=== PATIENT | male | born 1975 | race African-American/Black ===

== ENCOUNTER 2022-07-27 14:15 | Inpatient (IN) ==
--- NOTE | 2022-07-27 15:07 | Emergency Department Note ---
Impression & Plan Depression with suicidal ideation ED Provider Note NAME: ALEKSANDR XIAO AGE: 47 SEX: M : 1975 ARRIVES VIA: Ambulance INFORMANT: Patient, ED PROVIDER(S): Gary Reyes MD CHIEF COMPLAINT: Suicidal ideation MEDICAL DECISION MAKING: patient presents due to concern for suicidal ideation with plan. Blood work is obtained the patient was medically cleared seen and evaluated by psych correctional case records supervisor and referral was made to 3 [facility]. Patient is normal white count mild anemia hemoglobin of 13.8 normal platelet count kidney functions unremarkable. Urinalysis without obvious signs of infection. Salicylate Tylenol alcohol negative. COVID-negative. Prior /Outside records reviewed: None Differential diagnosis: Mood disorder, infection, hypoglycemia, electrolyte abnormalities, cardiac sources, intracerebral event, toxicologic, trauma, neurologic, as well as other pathologies. HPI: Patient presents due to concern for suicidal ideation with plan. Patient states that he has perseverated on thoughts of self-harm for several months but seem to be worse in the last days to 1 week. The patient's thought about sr nging himself or cutting himself. The patient has tried to hang himself in the past but was unsuccessful and the patient states that he has tried to cut his wrist in the past. The patient states he is currently unemployed and does not currently have a place to live. The patient is taking Seroquel as well as trazodone. Patient denies any alcohol tobacco or drug use. Patient states he has had no changes in his medications or missed doses. PAST MEDICAL HISTORY: See Below PAST SURGICAL HISTORY: See Below SOCIAL HISTORY: See Below HOME MEDICATIONS: See Below ALLERGIES: See Below VITALS: See Below PHYSICAL EXAMINATION: GENERAL: NAD, wearing a mask, non-toxic. EYE EXAM: Normal conjunctiva. PERRL, no anisocoria and EOM's grossly intact w/o pain. NECK: Supple, no nuchal rigidity, no adenopathy, non-tender. No signs of meningismus. FROM of the neck with good chin to chest and neck extension. No stridor. LUNGS: Clear to auscultation. Normal chest wall mechanics. HEART: NSR, no MRG. ABDOMEN: Abdomen soft, non-tender, normo-active bowel sounds, no masses, no rebound or guarding. BACK: No CVA TTP. SKIN: No rashes and no bruising. UPPER EXTREMITIES: Upper extremities are grossly normal. LOWER EXTREMITIES: Grossly normal, no edema. NEURO EXAM: A&O x3, cranial nerves II-XII grossly intact, normal speech, moves all 4 extremities. Psych: Positive SI with plan negative HI or AVH. Past Med/Surg History Medical History Depression Surgical History No pertinent past surgical history Social History Smoking Status: Current every day smoker Preferred Language: Montserratian Communication Ability: Effective Machine Edge Bander Required: No Beliefs That Will Affect Care: None Feels Safe at Home: Yes Gender Identity: Male Assistive Devices: None Allergies Allergies Allergy/AdvReac Type Severity Reaction Status Date / Time No Known Allergies Allergy Unverified 07/27/22 19:01 Home Meds Home Medications Medication Instructions Recorded Confirmed Prozac 30 mg PO QAM 07/27/22 07/27/22 Previous Rx's Medication Instructions Recorded Vitamin B-12 1,000 mcg PO DAILY #30 Tabs 07/28/22 famotidine 20 mg PO BID 30 days #60 caps 07/28/22 fluoxetine 10 mg capsule 30 mg PO QAM #90 caps 07/28/22 hydroxyzine HCl 50 mg PO TID PRN Anxiety #90 Tabs 07/28/22 lisinopril 40 mg PO QAM #30 caps 07/28/22 melatonin 10 mg PO HS PRN Sleep 30 days #60 07/28/22 Tabs metformin 500 mg PO TID #90 Tabs 07/28/22 quetiapine 100 mg tablet (Seroquel) 100 mg PO BID #60 tabs 07/28/22 quetiapine 50 mg tablet (Seroquel) 50 mg PO HS #30 tabs 07/28/22 sucralfate 100 mg/mL oral 1 g (10 mL) PO ACHS #400 mL 07/28/22 suspension trazodone 100 mg PO HS #30 tabs 07/28/22 Results & Data (ED) Vital Signs Vital Signs - 24 hr 07/27/22 14:29 07/27/22 14:29 Temperature 36.8 C Temperature Source Oral Pulse Rate 85 Respiratory Rate 16 16 Respiratory Effort / Characteristics Non-Labored Non-Labored Respiratory Depth Normal Normal Respiratory Pattern Regular Regular Blood Pressure 125/74 Blood Pressure Mean 91 Blood Pressure Position Lying Pulse Oximetry 98 Oxygen Delivery Method Room Air Sepsis Recent Fever Within 48 Hours No Sepsis New/Unexplained Change in Mental Status No Sepsis Action Taken by Nursing No Action Required Home Medications Current Medication List: was personally reviewed by me Laboratory Data Attestation: I reviewed the patient's lab results. 07/27/22 14:50 07/27/22 14:50 Lab Results 07/27/22 07/27/22 07/27/22 Range/Units 14:30 14:30 14:50 WBC 5.87 (4.8-10.8) K/ul RBC 4.86 (4.63-6.08) M/uL Hgb 13.8 L (14.0-18.0) g/dl Hct 39.7 L (40.1-51.0) % MCV 81.7 (80.0-100.0) fL MCH 28.4 (25.0-34.0) pg MCHC 34.8 (32.0-36.0) g/dL RDW Std Deviation 37.9 (36.4-46.3) fL RDW Coeff of Kee 12.8 (11.5-14.5) % Plt Count 340 (130-400) K/uL MPV 8.8 L (9.4-12.4) fL Immature Gran % (Auto) 0.3 % Neut % (Auto) 59.9 % Lymph % (Auto) 31.0 % [place] % (Auto) 7.5 % Eos % (Auto) 1.0 % Baso % (Auto) 0.3 % Neut # (Auto) 3.51 (1.4-6.5) K/uL Lymph # (Auto) 1.82 (1.2-3.4) K/uL [place] # (Auto) 0.44 (0.24-0.82) K/uL Eos # (Auto) 0.06 (0-0.50) K/uL Baso # (Auto) 0.02 (0-0.2) K/uL Immature Gran # (Auto) 0.02 (0.00-0.02) K/uL Sodium (136-145) mmol/L Potassium (3.5-5.1) mmol/L Chloride (98-107) mmol/L Carbon Dioxide (21-32) mmol/L Anion Gap (3-11) BUN (6-23) mg/dl Creatinine (0.6-1.4) mg/dl Est Cr Clr Drug Dosing Est GFR ( Amer) ml/min Est GFR (Non-Af Amer) ml/min BUN/Creatinine Ratio (10-20) Glucose (70-99(Fasting)) mg/dl Calcium (8.5-10.1) mg/dl Total Bilirubin (0.2-1.0) mg/dl AST (13-39) U/L ALT (7-52) U/L Alkaline Phosphatase (34-104) U/L Total Protein (6.0-8.3) gm/dl Albumin (3.4-5.0) gm/dl Globulin (2.5-4.0) gm/dl Albumin/Globulin Ratio (0.9-2) TSH (0.300-4.500) uIu/ml Urine Color Dark Yellow Urine Appearance Clear (Clear) Urine pH 6.0 (4.5-7.5) Ur Specific [place] 1.030 (1.000-1.030) Urine Protein Trace H (Negative) Urine Glucose (UA) Negative (Negative) Urine Ketones Trace H (Negative) Urine Blood Negative (Negative) Urine Nitrite Negative (Negative) Urine Bilirubin 1+ H (Negative) Urine Urobilinogen Negative (Negative) Ur Leukocyte Esterase Negative (Negative) Urine WBC (Auto) 1-5 (0-5) /hpf Urine RBC (Auto) 0-4 (0-4) /hpf U Hyaline Cast (Auto) 5-10 H (0-5) /lpf U Epithel Cells (Auto) 10-20 H (0-5) /lpf Urine Bacteria (Auto) Negative (Negative) Salicylates (3.0-30) mg/dl Urine Opiates Screen Neg (Neg) Ur Methadone, Qual Neg (Neg) Acetaminophen (10-30) ug/ml Urine Barbiturates Neg (Neg) Ur Phencyclidine (PCP) Neg (Neg) U Amphetamin/Meth Scrn Neg (Neg) MDMA (Ecstasy) Screen Pos H (Neg) U Benzodiazepines Scrn Neg (Neg) Ur Cocaine Metabolite Neg (Neg) U Marijuana (THC) Screen Neg (Neg) Ethyl Alcohol mg/dL (<10.0) mg/dl SARS-CoV-2, RNA, NAAT (NEGATIVE) 07/27/22 07/27/22 07/27/22 Range/Units 14:50 14:50 14:50 WBC (4.8-10.8) K/ul RBC (4.63-6.08) M/uL Hgb (14.0-18.0) g/dl Hct (40.1-51.0) % MCV (80.0-100.0) fL MCH (25.0-34.0) pg MCHC (32.0-36.0) g/dL RDW Std Deviation (36.4-46.3) fL RDW Coeff of Kee (11.5-14.5) % Plt Count (130-400) K/uL MPV (9.4-12.4) fL Immature Gran % (Auto) % Neut % (Auto) % Lymph % (Auto) % [place] % (Auto) % Eos % (Auto) % Baso % (Auto) % Neut # (Auto) (1.4-6.5) K/uL Lymph # (Auto) (1.2-3.4) K/uL [place] # (Auto) (0.24-0.82) K/uL Eos # (Auto) (0-0.50) K/uL Baso # (Auto) (0-0.2) K/uL Immature Gran # (Auto) (0.00-0.02) K/uL Sodium 139 (136-145) mmol/L Potassium 3.7 (3.5-5.1) mmol/L Chloride 104 (98-107) mmol/L Carbon Dioxide 27 (21-32) mmol/L Anion Gap 8 (3-11) BUN 14 (6-23) mg/dl Creatinine 0.95 (0.6-1.4) mg/dl Est Cr Clr Drug Dosing Not Reportable Est GFR ( Amer) 111.6 ml/min Est GFR (Non-Af Amer) 96.3 ml/min BUN/Creatinine Ratio 14.7 (10-20) Glucose 75 (70-99(Fasting)) mg/dl Calcium 9.6 (8.5-10.1) mg/dl Total Bilirubin 0.4 (0.2-1.0) mg/dl AST 12 L (13-39) U/L ALT 8 (7-52) U/L Alkaline Phosphatase 57 (34-104) U/L Total Protein 7.6 (6.0-8.3) gm/dl Albumin 4.5 (3.4-5.0) gm/dl Globulin 3.1 (2.5-4.0) gm/dl Albumin/Globulin Ratio 1.5 (0.9-2) TSH 0.575 (0.300-4.500) uIu/ml Urine Color Urine Appearance (Clear) Urine pH (4.5-7.5) Ur Specific [place] (1.000-1.030) Urine Protein (Negative) Urine Glucose (UA) (Negative) Urine Ketones (Negative) Urine Blood (Negative) Urine Nitrite (Negative) Urine Bilirubin (Negative) Urine Urobilinogen (Negative) Ur Leukocyte Esterase (Negative) Urine WBC (Auto) (0-5) /hpf Urine RBC (Auto) (0-4) /hpf U Hyaline Cast (Auto) (0-5) /lpf U Epithel Cells (Auto) (0-5) /lpf Urine Bacteria (Auto) (Negative) Salicylates < 3.0 L (3.0-30) mg/dl Urine Opiates Screen (Neg) Ur Methadone, Qual (Neg) Acetaminophen < 3 L (10-30) ug/ml Urine Barbiturates (Neg) Ur Phencyclidine (PCP) (Neg) U Amphetamin/Meth Scrn (Neg) MDMA (Ecstasy) Screen (Neg) U Benzodiazepines Scrn (Neg) Ur Cocaine Metabolite (Neg) U Marijuana (THC) Screen (Neg) Ethyl Alcohol mg/dL (<10.0) mg/dl SARS-CoV-2, RNA, NAAT (NEGATIVE) 07/27/22 07/27/22 Range/Units 14:50 16:10 WBC (4.8-10.8) K/ul RBC (4.63-6.08) M/uL Hgb (14.0-18.0) g/dl Hct (40.1-51.0) % MCV (80.0-100.0) fL MCH (25.0-34.0) pg MCHC (32.0-36.0) g/dL RDW Std Deviation (36.4-46.3) fL RDW Coeff of Kee (11.5-14.5) % Plt Count (130-400) K/uL MPV (9.4-12.4) fL Immature Gran % (Auto) % Neut % (Auto) % Lymph % (Auto) % [place] % (Auto) % Eos % (Auto) % Baso % (Auto) % Neut # (Auto) (1.4-6.5) K/uL Lymph # (Auto) (1.2-3.4) K/uL [place] # (Auto) (0.24-0.82) K/uL Eos # (Auto) (0-0.50) K/uL Baso # (Auto) (0-0.2) K/uL Immature Gran # (Auto) (0.00-0.02) K/uL Sodium (136-145) mmol/L Potassium (3.5-5.1) mmol/L Chloride (98-107) mmol/L Carbon Dioxide (21-32) mmol/L Anion Gap (3-11) BUN (6-23) mg/dl Creatinine (0.6-1.4) mg/dl Est Cr Clr Drug Dosing Est GFR ( Amer) ml/min Est GFR (Non-Af Amer) ml/min BUN/Creatinine Ratio (10-20) Glucose (70-99(Fasting)) mg/dl Calcium (8.5-10.1) mg/dl Total Bilirubin (0.2-1.0) mg/dl AST (13-39) U/L ALT (7-52) U/L Alkaline Phosphatase (34-104) U/L Total Protein (6.0-8.3) gm/dl Albumin (3.4-5.0) gm/dl Globulin (2.5-4.0) gm/dl Albumin/Globulin Ratio (0.9-2) TSH (0.300-4.500) uIu/ml Urine Color Urine Appearance (Clear) Urine pH (4.5-7.5) Ur Specific [place] (1.000-1.030) Urine Protein (Negative) Urine Glucose (UA) (Negative) Urine Ketones (Negative) Urine Blood (Negative) Urine Nitrite (Negative) Urine Bilirubin (Negative) Urine Urobilinogen (Negative) Ur Leukocyte Esterase (Negative) Urine WBC (Auto) (0-5) /hpf Urine RBC (Auto) (0-4) /hpf U Hyaline Cast (Auto) (0-5) /lpf U Epithel Cells (Auto) (0-5) /lpf Urine Bacteria (Auto) (Negative) Salicylates (3.0-30) mg/dl Urine Opiates Screen (Neg) Ur Methadone, Qual (Neg) Acetaminophen (10-30) ug/ml Urine Barbiturates (Neg) Ur Phencyclidine (PCP) (Neg) U Amphetamin/Meth Scrn (Neg) MDMA (Ecstasy) Screen (Neg) U Benzodiazepines Scrn (Neg) Ur Cocaine Metabolite (Neg) U Marijuana (THC) Screen (Neg) Ethyl Alcohol mg/dL < 10.0 (<10.0) mg/dl SARS-CoV-2, RNA, NAAT NEGATIVE (NEGATIVE) Administered Medications Discontinued Medications Cyanocobalamin (Cyanocobalamin (B-12) 500 Mcg Tablet) 1,000 mcg PO DAILY PRAKASH Stop: 08/27/22 08:59 Last Admin: 07/28/22 08:50 Dose: 1,000 mcg Documented By: DEMI Famotidine (Famotidine 20 Mg Tab) 20 mg PO BID [facility] Stop: 08/26/22 20:59 Last Admin: 07/28/22 08:51 Dose: 20 mg Documented By: Admin: 07/27/22 20:38 Dose: 20 mg Documented By: POLO Fluoxetine HCl (Fluoxetine Hcl 10 Mg Cap) 30 mg PO QAM [facility] Stop: 08/27/22 08:59 Last Admin: 07/28/22 08:51 Dose: 30 mg Documented By: DEMI Lisinopril (Lisinopril 40 Mg Tab) 40 mg PO QAM [facility] Stop: 08/27/22 08:59 Last Admin: 07/28/22 08:52 Dose: 40 mg Documented By: DEMI Metformin HCl (Metformin Hcl 500 Mg Tab) 500 mg PO TID [facility] Stop: 08/26/22 20:59 Last Admin: 07/28/22 13:12 Dose: 500 mg Documented By: Admin: 07/28/22 08:52 Dose: 500 mg Documented By: Admin: 07/27/22 20:39 Dose: 500 mg Documented By: DMT Miscellaneous (Remove Nicoderm Patch) 1 each N/A DAILY@0859 [facility] Stop: 08/27/22 08:58 Last Admin: 07/28/22 08:55 Dose: 1 each Documented By: DEMI Nicotine (Nicotine 21 Mg/24 Hr Tdsy) 21 mg TD QAM [facility] Stop: 08/26/22 19:14 Last Admin: 07/28/22 08:50 Dose: 21 mg Documented By: Admin: 07/27/22 20:37 Dose: 21 mg Documented By: HCAYITOT Quetiapine Fumarate (Quetiapine Fumarate 100 Mg Tablet) 100 mg PO QAM [facility] Stop: 08/27/22 08:59 Last Admin: 07/28/22 08:52 Dose: 100 mg Documented By: DEMI Quetiapine Fumarate (Quetiapine Fumarate 100 Mg Tablet) 150 mg PO [facility] Stop: 08/26/22 21:59 Last Admin: 07/27/22 20:41 Dose: 150 mg Documented By: DMT Sucralfate (Sucralfate 1 Gm/10 Ml Udc) 1 gm PO ACHS [facility] Stop: 08/26/22 21:59 Last Admin: 07/28/22 12:45 Dose: 1 gm Documented By: Admin: 07/28/22 08:49 Dose: 1 gm Documented By: Admin: 07/27/22 20:43 Dose: 1 gm Documented By: CHAYITOT Trazodone HCl (Trazodone Hcl 100 Mg Tab) 100 mg PO HS [facility] Stop: 08/26/22 20:59 Last Admin: 07/27/22 20:42 Dose: 100 mg Documented By: POLO Discharge Plan Visit Data Chief Complaint: Mental Health Evaluation Stated Complaint: [facility] ED Provider: Gary Reyes Discharge Problem: Depression with suicidal ideation Patient Disposition: Admitted As Inpatient Discharge Instructions Interventions: ED Discharge Assessment Last Done: 07/27/22 18:01
[2022-07-27 15:13] LABS: Basophils # (auto) 0.02 K/uL (0-0.2); Basophils % (auto) 0.3 %; Eosinophils # (auto) 0.06 K/uL (0-0.50); Hematocrit (blood only) 39.7 % (40.1-51.0); Hemoglobin 13.8 g/dl (14.0-18.0); Immature Granulocytes # (auto) 0.02 K/uL (0.00-0.02); Immature Granulocytes % (auto) 0.3 %; Lymphocytes # (auto) 1.82 K/uL (1.2-3.4); Mean Corpuscular Hemoglobin 28.4 pg (25.0-34.0); Mean Corpuscular Hgb Conc 34.8 g/dL (32.0-36.0); Mean Corpuscular Volume 81.7 fL (80.0-100.0); Mean Platelet Volume 8.8 fL (9.4-12.4); Monocytes # (auto) 0.44 K/uL (0.24-0.82); Monocytes % (auto) 7.5 %; Neutrophils # (auto) 3.51 K/uL (1.4-6.5); Neutrophils % (auto) 59.9 %; Platelet Count 340 K/uL (130-400); RDW Coefficient of Variation 12.8 % (11.5-14.5); RDW Standard Deviation 37.9 fL (36.4-46.3); Red Blood Count 4.86 M/uL (4.63-6.08); White Blood Count 5.87 K/ul (4.8-10.8)
[2022-07-27 15:23] LABS: Appearance Urine Clear (Clear); Bacteria Urine Automated Negative (Negative); Bilirubin Urine 1+ (Negative); Blood Urine Negative (Negative); Color Urine Dark Yellow; Glucose Urine UA Negative (Negative); Ketones Urine Trace (Negative); Leukocyte Esterase Urine Negative (Negative); Nitrite Urine Negative (Negative); Protein Urine Trace (Negative); RBC Urine Automated 0-4 /hpf (0-4); Urobilinogen Urine Negative (Negative)
[2022-07-27 15:49] LABS: Acetaminophen < 3 ug/ml (10-30); Alanine Aminotransferase 8 U/L (7-52); Albumin Globulin Ratio 1.5 (0.9-2); Albumin Level 4.5 gm/dl (3.4-5.0); Alkaline Phosphatase 57 U/L (34-104); Anion Gap 8 (3-11); Aspartate Aminotransferase 12 U/L (13-39); BUN Creatinine Ratio 14.7 (10-20); Bilirubin,Total 0.4 mg/dl (0.2-1.0); Blood Urea Nitrogen 14 mg/dl (6-23); Calcium 9.6 mg/dl (8.5-10.1); Carbon Dioxide 27 mmol/L (21-32); Chloride 104 mmol/L (98-107); Est GFR (African American) 111.6 ml/min; Est GFR (Non-African American) 96.3 ml/min; Globulin 3.1 gm/dl (2.5-4.0); Glucose 75 mg/dl (70-99(Fasting)); Potassium 3.7 mmol/L (3.5-5.1); Salicylate < 3.0 mg/dl (3.0-30); Sodium 139 mmol/L (136-145); Total Protein 7.6 gm/dl (6.0-8.3)
[2022-07-27 16:16] LABS: Amphetamines+Metham, Urine Neg (Neg); Barbiturates, Urine Neg (Neg); Benzodiazepine, Urine Neg (Neg); Cocaine, Urine Neg (Neg); MDMA (Ecstacy), Urine Pos (Neg); Methadone, Urine Neg (Neg); Opiate, Urine Neg (Neg); Phencyclidine, Urine Neg (Neg)
[2022-07-27] MEDS ORDERED: ACETAMINOPHEN 325 MG TAB PO PRN (17:36)
[2022-07-27] MEDS ORDERED: hydrOXYzine HCl 25 MG TAB PO PRN ×2 (17:36)
[2022-07-27] MEDS ORDERED: MAGNESIUM HYDROXIDE SUSP 30 ML UDC PO PRN (17:36)
[2022-07-27] MEDS ORDERED: SODIUM CHLORIDE 0.65% NA SOLN 45 ML (OCEAN) PRN (17:36)
[2022-07-27] MEDS ORDERED: ALUMINUM/MAGNESIUM SUSP 30 ML UDC PO PRN (17:36)
[2022-07-27] MEDS ORDERED: BISMUTH SUBSALICYLATE LIQD 236 ML PO PRN (17:36)
[2022-07-27] MEDS ORDERED: MELATONIN 3 MG TAB PO PRN (19:20)
[2022-07-27] MEDS: NICOTINE 21 MG/24 HR TDSY TD SCH (20:37)
[2022-07-27] MEDS: FAMOTIDINE 20 MG TAB PO SCH (20:38)
[2022-07-27] MEDS: metFORMIN HCL 500 MG TAB PO SCH (20:39)
[2022-07-27] MEDS: SUCRALFATE 1 GM/10 ML UDC PO SCH (20:43)
[2022-07-27] MEDS ORDERED: traZODone HCL 100 MG TAB PO SCH (21:00)
[2022-07-27] MEDS ORDERED: QUEtiapine FUMARATE 50 MG TABCR PO SCH (22:00)
[2022-07-27] MEDS ORDERED: QUEtiapine FUMARATE 100 MG TABLET PO SCH (22:00)
[2022-07-28] MEDS: SUCRALFATE 1 GM/10 ML UDC PO SCH ×2 (08:49→12:45)
[2022-07-28] MEDS: NICOTINE 21 MG/24 HR TDSY TD SCH (08:50)
[2022-07-28] MEDS: FAMOTIDINE 20 MG TAB PO SCH (08:51)
[2022-07-28] MEDS: metFORMIN HCL 500 MG TAB PO SCH ×2 (08:52→13:12)
[2022-07-28] MEDS ORDERED: QUEtiapine FUMARATE 100 MG TABLET PO SCH (09:00)
[2022-07-28] MEDS ORDERED: lisinopril 40 MG TAB PO SCH (09:00)
[2022-07-28] MEDS ORDERED: CYANOCOBALAMIN (B-12) 500 MCG TABLET PO SCH (09:00)
[2022-07-28] MEDS ORDERED: FLUoxetine HCL 10 MG CAP PO SCH (09:00)
--- NOTE | 2022-07-28 17:46 | History & Physical ---
Date of Service July 28, 2022 Impression / Recommendations Impression 47 yo male with hx of substance abuse, primarily alcohol (vodka), patient admits to misrepresenting his psychiatric symptoms as he is homeless. He does not want to return to rehab and does not feel he needs inpatient psychiatric care and desires to return to [facility]. (1) Depressive disorder: Plan The patient was admitted to the [facility] ([facility] inpatient mental health unit) on q15 min checks (behavioral with suicide precautions) for safety. He hasn't participated in programming and has largely been on the phone with insurance to coordinate aftercare/review options. He represents that most of his family is either estranged or deceasead and declines any contacts. Staff to review housing options and arrange transportation back to [facility] as he admits to malingering and does not meet any criteria for involuntary commitment. Inventory Assets Strengths: desires treatment in [place], taking PO medications Needs: housing, transportation Suicide Risk Level Suicide Risk Level: Moderate (q15 min suicide checks) (on admission given reports of SI, was on q15 min checks during stay but upon assessment deemed low risk/stable for discharge) Risk Factors Assessment Male: Yes : No Do You Have Access To A Gun?: No Mental Health Diagnoses: Yes Substance Use Disorders: Yes (though hx vague) Previous Attempt: Yes Previous Psychiatric Hospitalization: Yes Protective Factors Assessment Employed: No Stable Relationships: No Supportive Family: No Psychiatric History Identifying Data ALEKSANDR XIAO is a 47-year-old M, resided in [facility] in [place], [place] until entered residential substance abuse tx, has a history of alchol use, and was admitted on 07/27/22 17:36 on a 201 voluntary commitment for SI. Chief Complaint "I couldn't stand it there. I told them I needed help finding a way back to [place] or I'd cut up". History of Present Illness Patient was admitted to [facility] rehab 5 days ago from an inpatient unit in [place]. He is somewhat evasive with exact name/places of programs he's attended and during the admission process it was determined that he currently has outstanding rape 3 charges in [place] (felony). He denies being on probation and there is no indication that he is court ordered to rehab. He states that his last drink was 4-5 months ago and that he lost his [facility] housing when he opted to continue care within the [facility] system. He was admitted psychiatrically "as otherwise I was homeless" and relates finding the [facility] program on his own with the assistance of his insurance company. He states that when he arrived to rehab other patients were asking him if he sold drugs and he wanted to leave. He reports he was not placed in contact with his primary counselor or a grounds crew supervisor in a timely manner and this escalated to him making suicidal statements as "I wanted out of there, I didn't need to be there in the first place." He states he said "whatever in the ED as I wasn't going back there," referring to rehab. He also believes that they are withholding some of his personal belongings. He would like to return to [place] as soon as possible as he stated he never attended to be this far from [place]. Past Psychiatric History Current Psychiatric Diagnosis: MDD Previous Psych Admissions: reports 4 but is vague on dates, likely 6 rehab programs/recovery homes. Do You Have Access To A Gun?: No History of Previous Suicide Attempt: Yes Describe Attempts in the Past: hx of hanging attempt, states he can't recall date Past Medication Trials: patient unable to provide Allergies Allergy/AdvReac Type Severity Reaction Status Date / Time No Known Allergies Allergy Unverified 07/27/22 19:01 Home Medications Medication Instructions Recorded Confirmed Type Prozac 30 mg PO QAM 07/27/22 07/27/22 History Vitamin B-12 1,000 mcg PO DAILY #30 Tabs 07/28/22 Rx famotidine 20 mg PO BID 30 days #60 caps 07/28/22 Rx fluoxetine 10 mg capsule 30 mg PO QAM #90 caps 07/28/22 Rx hydroxyzine HCl 50 mg PO TID PRN Anxiety #90 Tabs 07/28/22 07/27/22 Rx lisinopril 40 mg PO QAM #30 caps 07/28/22 Rx melatonin 10 mg PO HS PRN Sleep 30 days #60 07/28/22 Rx Tabs metformin 500 mg PO TID #90 Tabs 07/28/22 Rx quetiapine 100 mg tablet (Seroquel) 100 mg PO BID #60 tabs 07/28/22 Rx quetiapine 50 mg tablet (Seroquel) 50 mg PO HS #30 tabs 07/28/22 Rx sucralfate 100 mg/mL oral 1 g (10 mL) PO ACHS #400 mL 07/28/22 Rx suspension trazodone 100 mg PO HS #30 tabs 07/28/22 07/27/22 Rx Family History Family History of: Doesn't Know Alcohol History Hx of Alcohol Use Over the Past 12 Months: Yes (Pt currently in rehab at [facility] for alcohol) AUDIT Total Score: 4 Smoking Use Have You Smoked or Used Tobacco Products in the Last 30 Days: Yes tobacco type: cigarettes Smoking Status: Current every day smoker Smoking packs per day: 1 Substance History Hx of Prescription Med Misuse Over the Past 12 Months: No Hx of Over the Counter Med Misuse Over the Past 12 Months: No Hx of Inhalent Misuse Over the Past 12 Months: No Hx of Organic Substance Use Over the Past 12 Months: No Hx of Illegal Substances/Street Drug Use Over Past 12 Months: No Problems as a Result of Past Substance Use: None Identified Problems as a Result of Past Substance Use Comments: Pt doesn't report any issues other than homelessness Personal History Living Arrangements: Rehab Living Arrangements Comments: Pt is homeless from [facility], was in [place] at [facility] for alcohol rehab Highest Grade Completed: High School Graduate Employment Status: Unemployed Marital Status: Single Number Of Children: 0 Beliefs That Will Affect Care: None Legal Problems Comment: Pt states that he has charges for third degree rape but is not on probation or parole currently, but instead is monitored by the courts. Patient History Medical History Depression Surgical History No pertinent past surgical history Social History Smoking Status: Current every day smoker Preferred Language: Citizen Of [place] Communication Ability: Effective Grant Coordinator Required: No Beliefs That Will Affect Care: None Feels Safe at Home: Yes Gender Identity: Male Assistive Devices: None Review of Systems 2 Review of Systems: All systems reviewed & are unremarkable except as noted in HPI & below Physical Exam Psychiatric: Orientation: alert and oriented x 3 Apperance: appropriately dressed and appropriately groomed Eye Contact: good eye contact Motor Behavior: no abnormal motor movements Speech: normal rate/rhythm/volume of speech Affect: + constricted affect Mood: + anxious mood Thought Process: + circumstantial thought process Thought Content: reality based without delusions Suicidal Thoughts: denies suicidal thoughts Homicidal Thoughts: denies homicidal thoughts Hallucinations: no auditory hallucinations and no visual hallucinations Cognition: attention grossly intact and language grossly intact Insight: + limited insight Vital Signs (Past 24 Hours): Last Vital Signs Temp 37.1 C 07/28/22 13:51 Pulse 73 07/28/22 13:51 Resp 16 07/28/22 13:51 BP 132/89 07/28/22 13:51 Pulse Ox 99 07/28/22 13:51 O2 Del Method 07/27/22 18:21 Exam Statement: A physical exam was performed in the ED by Dr. Reyes for the purposes of medical clearance. I accept that physical as correct and adequate for the purposes of the inpatient physical exam. Results & Data ([facility]) Laboratory Results Laboratory Results - last 24 hr Labs 07/27/22 07/27/22 07/27/22 14:30 14:30 14:50 WBC 5.87 RBC 4.86 Hgb 13.8 L Hct 39.7 L MCV 81.7 MCH 28.4 MCHC 34.8 RDW Std Deviation 37.9 RDW Coeff of Kee 12.8 Plt Count 340 MPV 8.8 L Immature Gran % (Auto) 0.3 Neut % (Auto) 59.9 Lymph % (Auto) 31.0 [place] % (Auto) 7.5 Eos % (Auto) 1.0 Baso % (Auto) 0.3 Neut # (Auto) 3.51 Lymph # (Auto) 1.82 [place] # (Auto) 0.44 Eos # (Auto) 0.06 Baso # (Auto) 0.02 Immature Gran # (Auto) 0.02 Sodium Potassium Chloride Carbon Dioxide Anion Gap BUN Creatinine Est Cr Clr Drug Dosing Est GFR ( Amer) Est GFR (Non-Af Amer) BUN/Creatinine Ratio Glucose Calcium Total Bilirubin AST ALT Alkaline Phosphatase Total Protein Albumin Globulin Albumin/Globulin Ratio TSH Urine Color Dark Yellow Urine Appearance Clear Urine pH 6.0 Ur Specific [place] 1.030 Urine Protein Trace H Urine Glucose (UA) Negative Urine Ketones Trace H Urine Blood Negative Urine Nitrite Negative Urine Bilirubin 1+ H Urine Urobilinogen Negative Ur Leukocyte Esterase Negative Urine WBC (Auto) 1-5 Urine RBC (Auto) 0-4 U Hyaline Cast (Auto) 5-10 H U Epithel Cells (Auto) 10-20 H Urine Bacteria (Auto) Negative Nasal Screen MRSA (PCR) Salicylates Urine Opiates Screen Neg Ur Methadone, Qual Neg Acetaminophen Urine Barbiturates Neg Ur Phencyclidine (PCP) Neg U Amphetamin/Meth Scrn Neg MDMA (Ecstasy) Screen Pos H U Benzodiazepines Scrn Neg Ur Cocaine Metabolite Neg U Marijuana (THC) Screen Neg Ethyl Alcohol mg/dL SARS-CoV-2, RNA, NAAT 07/27/22 07/27/22 07/27/22 14:50 14:50 14:50 WBC RBC Hgb Hct MCV MCH MCHC RDW Std Deviation RDW Coeff of Kee Plt Count MPV Immature Gran % (Auto) Neut % (Auto) Lymph % (Auto) [place] % (Auto) Eos % (Auto) Baso % (Auto) Neut # (Auto) Lymph # (Auto) [place] # (Auto) Eos # (Auto) Baso # (Auto) Immature Gran # (Auto) Sodium 139 Potassium 3.7 Chloride 104 Carbon Dioxide 27 Anion Gap 8 BUN 14 Creatinine 0.95 Est Cr Clr Drug Dosing Not Reportable Est GFR ( Amer) 111.6 Est GFR (Non-Af Amer) 96.3 BUN/Creatinine Ratio 14.7 Glucose 75 Calcium 9.6 Total Bilirubin 0.4 AST 12 L ALT 8 Alkaline Phosphatase 57 Total Protein 7.6 Albumin 4.5 Globulin 3.1 Albumin/Globulin Ratio 1.5 TSH 0.575 Urine Color Urine Appearance Urine pH Ur Specific [place] Urine Protein Urine Glucose (UA) Urine Ketones Urine Blood Urine Nitrite Urine Bilirubin Urine Urobilinogen Ur Leukocyte Esterase Urine WBC (Auto) Urine RBC (Auto) U Hyaline Cast (Auto) U Epithel Cells (Auto) Urine Bacteria (Auto) Nasal Screen MRSA (PCR) Salicylates < 3.0 L Urine Opiates Screen Ur Methadone, Qual Acetaminophen < 3 L Urine Barbiturates Ur Phencyclidine (PCP) U Amphetamin/Meth Scrn MDMA (Ecstasy) Screen U Benzodiazepines Scrn Ur Cocaine Metabolite U Marijuana (THC) Screen Ethyl Alcohol mg/dL SARS-CoV-2, RNA, NAAT 07/27/22 07/27/22 07/27/22 14:50 16:10 Unknown WBC RBC Hgb Hct MCV MCH MCHC RDW Std Deviation RDW Coeff of Kee Plt Count MPV Immature Gran % (Auto) Neut % (Auto) Lymph % (Auto) [place] % (Auto) Eos % (Auto) Baso % (Auto) Neut # (Auto) Lymph # (Auto) [place] # (Auto) Eos # (Auto) Baso # (Auto) Immature Gran # (Auto) Sodium Potassium Chloride Carbon Dioxide Anion Gap BUN Creatinine Est Cr Clr Drug Dosing Est GFR ( Amer) Est GFR (Non-Af Amer) BUN/Creatinine Ratio Glucose Calcium Total Bilirubin AST ALT Alkaline Phosphatase Total Protein Albumin Globulin Albumin/Globulin Ratio TSH Urine Color Urine Appearance Urine pH Ur Specific [place] Urine Protein Urine Glucose (UA) Urine Ketones Urine Blood Urine Nitrite Urine Bilirubin Urine Urobilinogen Ur Leukocyte Esterase Urine WBC (Auto) Urine RBC (Auto) U Hyaline Cast (Auto) U Epithel Cells (Auto) Urine Bacteria (Auto) Nasal Screen MRSA (PCR) Negative Salicylates Urine Opiates Screen Ur Methadone, Qual Acetaminophen Urine Barbiturates Ur Phencyclidine (PCP) U Amphetamin/Meth Scrn MDMA (Ecstasy) Screen U Benzodiazepines Scrn Ur Cocaine Metabolite U Marijuana (THC) Screen Ethyl Alcohol mg/dL < 10.0 SARS-CoV-2, RNA, NAAT NEGATIVE
--- NOTE | 2022-07-28 17:49 | Discharge Summary ---
Date of Service July 28, 2022 History of Present Illness Patient was admitted to [facility] 5 days ago from an inpatient unit in [place]. He is somewhat evasive with exact name/places of programs he's attended and during the admission process it was determined that he currently has outstanding rape 3 charges in [place] (felony). He denies being on probation and there is no indication that he is court ordered to rehab. He states that his last drink was 4-5 months ago and that he lost his custodial-plus housing when he opted to continue care within the [facility]. He was admitted psychiatrically "as otherwise I was homeless" and relates finding the [facility] program on his own with the assistance of his insurance company. He states that when he arrived to rehab other patients were asking him if he sold drugs and he wanted to leave. He reports he was not placed in contact with his primary counselor or a comfort station supervisor in a timely manner and this escalated to him making suicidal statements as "I wanted out of there, I didn't need to be there in the first place." He states he said "whatever in the ED as I wasn't going back there," referring to rehab. He also believes that they are withholding some of his personal belongings. He would like to return to [place] as soon as possible as he stated he never attended to be this far from [place]. Physical Exam Psychiatric Orientation: alert and oriented x 3 Apperance: appropriately dressed and appropriately groomed Eye Contact: good eye contact Motor Behavior: no abnormal motor movements Speech: normal rate/rhythm/volume of speech Affect: + constricted affect Mood: + anxious mood Thought Process: + circumstantial thought process Thought Content: reality based without delusions Suicidal Thoughts: denies suicidal thoughts Homicidal Thoughts: denies homicidal thoughts Hallucinations: no auditory hallucinations and no visual hallucinations Cognition: attention grossly intact and language grossly intact Insight: + limited insight Vital Signs (Past 24 Hours) Last Vital Signs Temp 37.1 C 07/28/22 13:51 Pulse 73 07/28/22 13:51 Resp 16 07/28/22 13:51 BP 132/89 07/28/22 13:51 Pulse Ox 99 07/28/22 13:51 O2 Del Method 07/27/22 18:21 Principal Diagnosis depressive disorder Psychiatric Data See daily stay summary. In short, safety was maintained. Medications were continued as ordered at [facility] and he was provided any remaining blister packs from there as well as 30 day scripts. Scripts were printed as copies should he want to request transferred from his preferred pharmacy. He verbalized a safety plan at discharge and is well versed on how to use CM services at custodial and how to contact insurance to make outpatient appointments. He preferred to make own appointments upon discharge. Day of Discharge Assessment see admission PE. Transition of Care Transition Of Care Record: was reviewed with the patient Advance Directives Advance Directives Information Provided: Yes Advance Directives: No Mental Health Advance Directive: No Advance Directives on File: No Living Will: No Power of Bathhouse Keeper: No Advance Directives Reason:: Declines as Mental Health Visit. Suicide Risk Level Suicide Risk Level Comments: Suicide risk at discharge is deemed low as the patient is no longer requiring 24-hr monitoring, has a safety plan, and is free of suicidal ideation at discharge. Risk Factors Assessment Male: Yes : No Do You Have Access To A Gun?: No Mental Health Diagnoses: Yes Substance Use Disorders: Yes (though hx vague) Previous Attempt: Yes Previous Psychiatric Hospitalization: Yes Protective Factors Assessment Employed: No Stable Relationships: No Supportive Family: No Tobacco Cessation at Discharge Tobacco Cessation Medication Prescribed at Discharge: Offered & Pt Refused Discharge Data Lab Results 07/27/22 07/27/22 07/27/22 14:30 14:30 14:50 WBC 5.87 RBC 4.86 Hgb 13.8 L Hct 39.7 L MCV 81.7 MCH 28.4 MCHC 34.8 RDW Std Deviation 37.9 RDW Coeff of Kee 12.8 Plt Count 340 MPV 8.8 L Immature Gran % (Auto) 0.3 Neut % (Auto) 59.9 Lymph % (Auto) 31.0 [place] % (Auto) 7.5 Eos % (Auto) 1.0 Baso % (Auto) 0.3 Neut # (Auto) 3.51 Lymph # (Auto) 1.82 [place] # (Auto) 0.44 Eos # (Auto) 0.06 Baso # (Auto) 0.02 Immature Gran # (Auto) 0.02 Sodium Potassium Chloride Carbon Dioxide Anion Gap BUN Creatinine Est Cr Clr Drug Dosing Est GFR ( Amer) Est GFR (Non-Af Amer) BUN/Creatinine Ratio Glucose Calcium Total Bilirubin AST ALT Alkaline Phosphatase Total Protein Albumin Globulin Albumin/Globulin Ratio TSH Urine Color Dark Yellow Urine Appearance Clear Urine pH 6.0 Ur Specific [place] 1.030 Urine Protein Trace H Urine Glucose (UA) Negative Urine Ketones Trace H Urine Blood Negative Urine Nitrite Negative Urine Bilirubin 1+ H Urine Urobilinogen Negative Ur Leukocyte Esterase Negative Urine WBC (Auto) 1-5 Urine RBC (Auto) 0-4 U Hyaline Cast (Auto) 5-10 H U Epithel Cells (Auto) 10-20 H Urine Bacteria (Auto) Negative Nasal Screen MRSA (PCR) Salicylates Urine Opiates Screen Neg Ur Methadone, Qual Neg Acetaminophen Urine Barbiturates Neg Ur Phencyclidine (PCP) Neg U Amphetamin/Meth Scrn Neg MDMA (Ecstasy) Screen Pos H U Benzodiazepines Scrn Neg Ur Cocaine Metabolite Neg U Marijuana (THC) Screen Neg Ethyl Alcohol mg/dL SARS-CoV-2, RNA, NAAT 07/27/22 07/27/22 07/27/22 14:50 14:50 14:50 WBC RBC Hgb Hct MCV MCH MCHC RDW Std Deviation RDW Coeff of Kee Plt Count MPV Immature Gran % (Auto) Neut % (Auto) Lymph % (Auto) [place] % (Auto) Eos % (Auto) Baso % (Auto) Neut # (Auto) Lymph # (Auto) [place] # (Auto) Eos # (Auto) Baso # (Auto) Immature Gran # (Auto) Sodium 139 Potassium 3.7 Chloride 104 Carbon Dioxide 27 Anion Gap 8 BUN 14 Creatinine 0.95 Est Cr Clr Drug Dosing Not Reportable Est GFR ( Amer) 111.6 Est GFR (Non-Af Amer) 96.3 BUN/Creatinine Ratio 14.7 Glucose 75 Calcium 9.6 Total Bilirubin 0.4 AST 12 L ALT 8 Alkaline Phosphatase 57 Total Protein 7.6 Albumin 4.5 Globulin 3.1 Albumin/Globulin Ratio 1.5 TSH 0.575 Urine Color Urine Appearance Urine pH Ur Specific [place] Urine Protein Urine Glucose (UA) Urine Ketones Urine Blood Urine Nitrite Urine Bilirubin Urine Urobilinogen Ur Leukocyte Esterase Urine WBC (Auto) Urine RBC (Auto) U Hyaline Cast (Auto) U Epithel Cells (Auto) Urine Bacteria (Auto) Nasal Screen MRSA (PCR) Salicylates < 3.0 L Urine Opiates Screen Ur Methadone, Qual Acetaminophen < 3 L Urine Barbiturates Ur Phencyclidine (PCP) U Amphetamin/Meth Scrn MDMA (Ecstasy) Screen U Benzodiazepines Scrn Ur Cocaine Metabolite U Marijuana (THC) Screen Ethyl Alcohol mg/dL SARS-CoV-2, RNA, NAAT 07/27/22 07/27/22 07/27/22 14:50 16:10 Unknown WBC RBC Hgb Hct MCV MCH MCHC RDW Std Deviation RDW Coeff of Kee Plt Count MPV Immature Gran % (Auto) Neut % (Auto) Lymph % (Auto) [place] % (Auto) Eos % (Auto) Baso % (Auto) Neut # (Auto) Lymph # (Auto) [place] # (Auto) Eos # (Auto) Baso # (Auto) Immature Gran # (Auto) Sodium Potassium Chloride Carbon Dioxide Anion Gap BUN Creatinine Est Cr Clr Drug Dosing Est GFR ( Amer) Est GFR (Non-Af Amer) BUN/Creatinine Ratio Glucose Calcium Total Bilirubin AST ALT Alkaline Phosphatase Total Protein Albumin Globulin Albumin/Globulin Ratio TSH Urine Color Urine Appearance Urine pH Ur Specific [place] Urine Protein Urine Glucose (UA) Urine Ketones Urine Blood Urine Nitrite Urine Bilirubin Urine Urobilinogen Ur Leukocyte Esterase Urine WBC (Auto) Urine RBC (Auto) U Hyaline Cast (Auto) U Epithel Cells (Auto) Urine Bacteria (Auto) Nasal Screen MRSA (PCR) Negative Salicylates Urine Opiates Screen Ur Methadone, Qual Acetaminophen Urine Barbiturates Ur Phencyclidine (PCP) U Amphetamin/Meth Scrn MDMA (Ecstasy) Screen U Benzodiazepines Scrn Ur Cocaine Metabolite U Marijuana (THC) Screen Ethyl Alcohol mg/dL < 10.0 SARS-CoV-2, RNA, NAAT NEGATIVE Hospital Course (1) Depressive disorder: Plan The patient was admitted to the [facility] ([facility] unit) on q15 min checks (behavioral with suicide precautions) for safety. He hasn't participated in programming and has largely been on the phone with insurance to coordinate aftercare/review options. He represents that most of his family is either estranged or deceasead and declines any contacts. Staff to review housing options and arrange transportation back to [facility] as he admits to malingering and does not meet any criteria for involuntary commitment. Mental Health & Subst Abuse Tx Psychiatrist Name of Psychiatrist: [facility] Psychiatrist's Time of Appointment with Psychiatrist: Call to re-establish outpatient services. Psychiatric Appointment Comment: [address] [place] [address] Therapist Name of Therapist: Geremias Rubio Therapist's Time of Therapist Appointment: Call to re-establish outpatient services. Therapy Appointment Comment: [address] [place] [address] [employer] Name of Radio Operator Ground: None outpatient/currently at [facility] Post Discharge Appointments Primary Care Physician Name Of Family Doctor/PCP: None Smoking Cessation Counseling Tobacco Cessation Medication Prescribed at Discharge: Offered & Pt Refused Other #1: Name of Aftercare Appointment: [facility] Phone Number of Aftercare Appointment: Time of Aftercare Appointment: Call or present for custodial intake. Aftercare Appointment Comment: [phone] [place] [address] Contact Information Discharge Phone Number: n/a Discharge Address: [place], [place] Discharge Plan Discharge Items Patient Disposition: Hospice - Home Reason For Visit: suicidal ideation Discharge Diagnosis: depressive disorder Activity: Resume your previous activity Non-emergency contact: Primary Care Provider and Assistant Analyst Call non-emergency contact if: you have any medication questions and your symptoms worsen Follow-up/Referrals: PCP,NO [Primary Care Provider] - Diet: Regular Addtl Attending Provider Instructions: SPECIAL CARE INSTRUCTIONS: 1. Follow through with your scheduled aftercare appointments. If unable to keep an appointment, please call to reschedule. 2. Take your medication only as prescribed. Medication should not be changed or stopped without the approval of your doctor. In the event of worsening symptoms or concerns about side effects, contact your doctor immediately. 3. Utilize new healthy coping skills, anger management skills, and stress management skills learned during your hospitalization. Journal feelings and process them with a support person. Identify stressors or situations that may result in relapse, deterioration or inappropriate behaviors and develop a plan to deal with those issues. 4. If your coping skills are ineffective and you are in crisis, contact your outpatient providers for direction. If unable to reach your providers, please call the [facility] CRISIS LINE AT , go to the [facility] walk-in center at [address], [address], [place], or go to the closest Emergency Room. 5. Avoid alcohol and un-prescribed drugs. 6. You have been provided with the Mental Health Advance Directives Pamphlet for your review. 7. Your condition is stable for discharge to outpatient level of care, but recovery is an ongoing process. Ifthoughts to harm yourself or others return, follow the safety plan developed during your stay. Planning for a safe return home includes securing weapons. Our treatment team recommends weaponsbe removed from the home until your outpatient provider reassesses your progress. In rare cases where the items themselvescannot be removed, guns and ammunitionshould be secured separatelyand keys stored by a reliable personoutside of the home. If you were admitted on an involuntary commitment, the police or other legal authorities may be involved in this process. AFTERCARE APPOINTMENTS: * Please call your insurance company prior to your scheduled appointment to confirm your aftercare providers are covered. Take your insurance information to your appointments. WHO TO CALL AND WHEN: Medical Emergencies: For questions or emergencies related to your hospital stay, please contact the Inpatient Behavioral Health Unit at [phone]. A intake clinician is on-call 31/01 for the Behavioral Health Unit for emergencies At any time you feel your situation is an emergency, you may also call 911 immediately. Pending Studies at Discharge: No Stand-Alone Forms: My [facility] Medications and DC Order Prescriptions: New quetiapine [Seroquel] 100 mg tablet 100 mg PO BID Qty: 60 0RF quetiapine [Seroquel] 50 mg tablet 50 mg PO HS Qty: 30 0RF Rx Instructions: take with 100 df=351 mg hs fluoxetine 10 mg Capsule 30 mg PO QAM Qty: 90 0RF sucralfate 100 mg/mL Suspension 1 g PO ACHS Qty: 400 0RF Continued Prozac 30 mg 30 mg PO QAM Vitamin B-12 1,000 mcg 1,000 mcg PO DAILY Qty: 30 0RF famotidine 20 mg 20 mg PO BID 30 Days Qty: 60 0RF hydroxyzine HCl 50 mg 50 mg PO TID PRN (Reason: Anxiety) Qty: 90 0RF lisinopril 40 mg 40 mg PO QAM Qty: 30 0RF melatonin 5 mg 10 mg PO HS PRN (Reason: Sleep) 30 Days Qty: 60 0RF metformin 500 mg 500 mg PO TID Qty: 90 0RF trazodone 100 mg 100 mg PO HS Qty: 30 0RF Discontinued Carafate 100 mg/ml 10 ml PO Q6H Seroquel 50 mg 100 mg PO QAM Seroquel 50 mg 150 mg PO HS Discharge Orders: Discharge Order (Routine); Ordered 07/28/22 Ordered By: Anita Mcdonnell Admission Data Admit Date/Time: 07/27/22 17:36 Attending Provider: Anita Mcdonnell Admit Provider: Anita Mcdonnell Primary Care Provider: PCP,NO Other Interventions: Discharge Summary Assessment (RN) Last Done: 07/28/22 13:51 PSY Interdisciplinary Discharge Planning Last Done: 07/28/22 12:34 Coding Level of Care Code None Diagnoses Depressive disorder F32.A Comment admission and d/c in less than 24 hrs.
[2022-08-02 10:32] LABS: MDA negative; MDEA negative; MDMA (Ecstasy) Urine, Confirm negative
== END 2022-07-28 13:30 | disposition home or self-care (01) | DRG 881 ==
LOC: EDSEX → ED 14:15 → 3S 17:36